=== PATIENT | female | born 1960 | race Caucasian/White ===

== ENCOUNTER → 2025-01-08 09:16 | Outpatient (REF) | payer OTHER, SELFPAY ==
--- OUTSIDE RECORDS SUMMARY | 2024-08-15 09:00 | XMS_ITS ---
Author Organization [facility] Address [address] [place] [address] [address] [place] [address] Care Team Providers Care [employer] President Name Role Phone BRANDON APODACA Unavailable [phone] REASON FOR VISIT Annual KILN FIREMAN Physical Encounters Encounter Location Date Provider Diagnosis [facility] [address] [place] [id number] 08/15/2024 BRANDON APODACA Plan Of Treatment Next Appt Details Provider Name:BRANDON Portillo, 09/08/2025 11:00:00 AM, [address] [place] [address], [address], [place], [address], Progress Notes * QIANA MONIQUEBERTRANDOB:1960 (64 yo F)Acc No.[id number]:08/15/2024 PROGRESS NOTES Patient: KAYLAH ESPOSITO Provider: Nette APODACA MD :1960 A ge:64 Y S ex:Female Date:08/15/2024 Address:[address] [place], [place] [id number] Subjective: * Chief Complaints: * 1 . Annual KILN FIREMAN Physical. * Medical History: Objective: * Vitals: Assessment: Plan: * Treatment: * Images: Billing Information: * Visit Code: * Procedure Codes: * Electronic signature of BRANDON APODACA MD on 01/08/2025 at 10:28 AM EDT Sign off status: Pending * Provider: Nette APODACA MD Date: 0 08/15/2024 Generated for Emily caraballo/Mario/eTransmitting on: 1 10:28 AM EDT
--- NOTE | ~2025-01-08 | NM_ITS ---
EXAMINATION: NM THYROID IMAGING AND UPTAKE CLINICAL INFORMATION: HYPERTHYROIDISM COMPARISON: There are no prior studies available for comparison. TECHNIQUE: Following the oral administration of 300 microcuries of I-123 sodium iodide, thyroid uptake was performed and expressed as a percentage of the administrated dose. Gamma scintillation camera images of the thyroid in the anterior and right and left anterior oblique views were obtained using a pinhole collimator following the administration of 10 mCi Tc-99m pertechnetate. FINDINGS: There is a normal homogeneous distribution of activity throughout both thyroid lobes. No focal hot foci or cold defects are identified. The uptake is 9.12% at 4 hours and 34.53% at 24 hours. NM/NM thyroid w uptake IMPRESSION: Normal thyroid uptake and scan. Electronically signed by: Marty Carroll MD 01/09/2025 12:06 PM EDT
--- OUTSIDE RECORDS SUMMARY | 2025-01-08 10:28 | XMS_ITS | Clinical Summary ---
Author Organization [facility] Address [address] [place] [address] Phone Care Team Providers Care Personal Shopper Name Role Phone Lanie Mckeon MD Primary Care Provider [phone] Allergies Active Allergy Reactions Criticality Noted Date Comments Hydrocodone Rash 07/09/2024 Pollen Extracts 05/06/2024 Medications cetirizine (ZyrTEC) 10 mg tablet Take 1 tablet (10 mg total) by mouth 1 (one) time each day. 03/26/19 25 Active oxyBUTYnin XL (DITROPAN-XL) 10 mg 24 hr tabletIndication s:bladder hyperactivity Take 1 tablet (10 mg total) by mouth 1 (one) time each day. Do not crush, chew, or split. Active nicotine (NICODERM CQ) 14 mg/[address] 1 patch on the skin 1 (one) time each day at the same time. Active lisinopriL (PRINIVIL,ZESTRI L) 10 mg tablet TAKE 1 TABLET BY MOUTH 1 TIME EACH DAY. 30 tablet 05/20/19 25 Active atorvastatin (LIPITOR) 40 mg tablet TAKE 1 TABLET BY MOUTH EVERYDAY AT BEDTIME 30 tablet 11 05/23/19 25 Active aspirin 81 mg EC tablet TAKE 1 TABLET BY MOUTH 1 TIME EACH DAY. 30 tablet 5 12/11/19 25 Active apixaban (ELIQUIS) 5 mg tablet Take 1 tablet (5 mg total) by mouth 2 (two) times a day. 180 each 12/25/19 25 025 Active aspirin 81 mg EC tablet Take 1 tablet (81 mg total) by mouth 1 (one) time each day. 30 each 5 06/27/19 25 025 Discontinued apixaban (ELIQUIS) 5 mg tablet Take 1 tablet (5 mg total) by mouth 2 (two) times a day. 180 each 1 07/10/19 25 025 Discontinued(Re order) Active Problems Problem Noted Date Diagnosed Date Primary hypertension 12/24/2024 Tobacco use 12/24/2024 Typical atrial flutter (CMS/HCC V24, CMS/HCC V28 ) 04/18/2024 Assessment & Plan (09/16/2024 8:50 PM EDT): Orders: ECG 12 lead Assessment & Plan (07/09/2024 1:47 PM EDT): The patient has a history of atrial flutter/fibrillation which was recently identified during her recent hospitalization. She was recommended to go electrical cardioversion which was completed 05/23/2024. Unfortunately, despite 3 cardioversion shock attempts, the patient was unable to maintain a sinus rhythm. EKG today shows atrial flutter at a rate of 58 bpm. Echocardiogram showed normal LV function March 2024. At this point, recommend she be evaluated by electrophysiology Dr. Mcgraw for consideration of ablation. The patient agrees to proceed. She will continue on anticoagulation therapy with apixaban 5 mg orally twice daily based on her age, weight, kidney function. She denies any excessive bruising or bleeding. She is not currently on any rate control therapies and denies any elevated heart rates. She will notify me of any changes. She denies any evidence of snoring. Orders: ECG 12 lead Assessment & Plan (05/06/2024 9:36 AM EST): The patient was found to have atrial flutter/fibrillation her recent hospitalization at [facility]. Her heart rate remained controlled during the hospitalization. She was started on anticoagulation therapy with Eliquis on 04/22/2024. She has been compliant with the Eliquis. On today's visit, she was noted to still be in atrial flutter. Her heart rate is well-controlled. We discussed the possibility of a cardioversion in order to attempt to restore a sinus rhythm. The patient is agreeable to undergoing a cardioversion. Will plan for a cardioversion to be done on 05/23/2024 (after that patient has been on anticoagulation therapy for at least 1 month). Orders: Cardioversion external; Future Coronary artery disease invo lving gulkana coronary artery of gulkana heart without angina pectoris 04/18/2024 Assessment & Plan (09/16/2024 8:50 PM EDT): Orders: ECG 12 lead Assessment & Plan (07/09/2024 1:47 PM EDT): The patient has a history of coronary artery disease. Recent left heart catheterization showed mild to moderate nonobstructive CAD in the ramus with normal left main, LAD, circumflex, and RCA. Currently, the patient denies any chest pain at rest or with exertion. The patient continues on secondary preventive therapy for CAD, including: aspirin and statin. Will continue current therapy. Assessment & Plan (05/06/2024 9:36 AM EST): The patient has a history of coronary artery disease. Recent left heart catheterization showed mild to moderate nonobstructive CAD in the ramus with normal left main, LAD, circumflex, and RCA. Currently, the patient denies any chest pain at rest or with exertion. The patient continues on secondary preventive therapy for CAD, including: aspirin, statin . Will continue current therapy. Yahir 05/30/2006 Resolved Problems Problem Noted Date Diagnosed Date Resolved Date Right arm pain 05/06/2024 07/09/2024 Assessment & Plan (05/06/2024 9:36 AM EST): The patient underwent a right heart catheterization via the right radial approach. On today's visit, the patient states that she sometimes notices a mild discomfort sensation in the lateral side of the right wrist (over the right radial artery. The right radial pulse was noted to be normal. There is no evidence of any abnormal masses or hematoma. However, there is tenderness to palpation when pressing on the right radial artery. As such, we will order an arterial duplex to rule out the presence of any postprocedure complications such as a right radial artery pseudoaneurysm or AV fistula. Orders: Vascular US duplex upper extremity arteries right with Doppler; Future SOB (shortness of breath) 09/24/2008 Overview (04/24/2024): 2008, with neg. EW visit of CBC and BMP and bilateral leg U/S's Encounters Date Type Department Care Team Description 12/24/2024 10:10 AM EDT Office Visit [facility] - [address] [place] [address] Rosa Maria Carrillo PA Typical atrial flutter (CMS/HCC V24, CMS/HCC V28) (Primary Dx); Coronary artery disease involving gulkana coronary artery of gulkana heart without angina pectoris; Primary hypertension; Tobacco use 11/11/2024 8:50 AM EDT Lab Draw Station - [address] [address] Typical atrial flutter (CMS/HCC V24, CMS/HCC V28) (Primary Dx); Pure hypercholesterolemia; Acute myocardial infarction, subendocardial infarction, initial episode of care (CMS/HCC V24, CMS/HCC V28); Atrial flutter (CMS/HCC V24, CMS/HCC V28); Body mass index 31.0-31.9, adult from Last 3 Months Immunizations Immunization Administration Dates Next Due Td Tetanus diptheria (Tdvax) 7yo and older 06/06 Surgical History Surgery Date Site/Laterality Comments TUBAL LIGATION PROCEDURE: HISTORICAL TUBAL LIGATION ABLATION DONE ON 11/20/2024 AT [facility] [place] Medical History Medical History Date Comments Depressive disorder, not els ewhere classified DX:Depressive disorder, not elsewhere classified Tobacco use disorder DX:Tobacco use disorder Unspecified asthma(493.90) DX:Un specified asthma(493.90) Historical Medical DX 09/24/2008 DX:S.O.B. Primary hypertension 12/24/2024 Family History Medical History Relation Name Comments Diabetes Father Heart attack Father Hypertension Father Hypertension Mother Relation Name Status Comments Father Mother Social History Tobacco Use Types Packs/Day Years Used Date Smoking Tobacco: Every Day Cigarettes 0.5 0.7 Started: 04/2024 Tobacco Cessation:Ready to Q uit: Not Asked; Counseling Given: Not Answered Comments:Approx 5-10 cigarettes daily Alcohol Use Standard Drinks/Week Comments Yes 0 (1 standard drink = 0.6 oz pur e alcohol) once weekly Housing Instability Answer Date Recorde d Are you worried that in the next 2 months you may not have stable housing? No 04/18/2024 Food Access & Nutrition Answer Date Rec orded Do you have access to a vari ety of food including fruits and vegetables? Yes 04/18/2024 Access to Healthcare Answer Date Record ed Within the last 3 months, ho w many times did you visit the emergency department for your medical care? 0 04/18/2024 Health Literacy Answer Date Recorded How often do you need to hav e someone help you when you read instructions, pamphlets, or other written material from your doctor or pharmacy? Rarely 04/18/2024 Caregiver: How often do you need to have someone help you when you read instructions, pamphlets, or other written material from your doctor or pharmacy? Not on file 04/18/2024 Financial Risk Answer Date Recorded How hard is it for you to pa y for the very basics like food, housing, medical care, and air conditioning / heating? Not very hard 04/18/2024 Transportation Answer Date Recorded Has the lack of transportati on kept you from meetings, work, or from getting things needed for daily living? No Has the lack of transportati on kept you from medical appointments or from getting medications? No 04/18/2024 Social Isolation Answer Date Recorded How often do you feel lonely or isolated from th ose around you? Rarely 04/18/2024 Food Risk Answer Date Recorded Within the past 12 months we worried whether our food would run out before we got money to buy more. Never true 04/18/2024 Within the past 12 months th e food we bought just didn't last and we didn't have money to get more. Never true 04/18/2024 Dependent Care Answer Date Recorded Do you need help finding or paying for care for your loved ones. For example, child care provider or elderly care for an older adult? No 04/18/2024 Education Answer Date Recorded Do you think completing more education or training, like finishing a GED, going to college, or learning a trade, would be helpful for you? N/A 04/18/2024 Employment and Income Answer Date Recor ded During the last four weeks, have you been actively looking for work? No 04/18/2024 Living Situation Answer Date Recorded What is your living situation? Unrecognized valu e 04/18/2024 Interpersonal Safety Answer Date Record ed Physical Abuse Unrecognized value 04/18/2024 Verbal Abuse Unrecognized value 04/18/2024 Comments No Sex and Gender Information Value Date Recorded Sex Assigned at Female 04/18/2024 3:56 PM EST Legal Sex Female 1:32 AM EST Gender Identity Female 04/18/2024 3:56 PM EST Sexual Orientation Straight 04/18/2024 3: 56 PM EST Obstetrics History Last Filed Vital Signs Vital Sign Reading Time Taken Comments Blood Pressure 120/60 12/24/2024 9:45 AM EDT Pulse 65 12/24/2024 9:45 AM EDT Temperature 36.8 C (98.2 F) 05/23/2024 12:34 PM EST Respiratory Rate 20 05/23/2024 12:34 PM EST Oxygen Saturation 97% 12/24/2024 9:45 AM EDT Inhaled Oxygen Concentration - - Weight 79.4 kg (175 lb) 12/24/2024 9:45 AM EDT Height 165.1 cm (5' 5 ) 12/24/2024 9:45 AM EDT Body Mass Index 29.12 12/24/2024 9:45 AM EDT Plan of Treatment Upcoming Encounters Date Type Department Care Team (Late st Contact Info) Description 03/04/2025 10:10 AM EST Office Visit [facility] - [address] [place] [address] Rosa Maria Carrillo PA [address] [place] [address] Health Maintenance Due Date Last Done Comments Breast Cancer Screening 1960 RSV Immunization Adult Patients (1 - Risk 50-74 years 1-dose series) 02/09/2010 Zoster Vaccines (1 of 2) 02/09/2010 DTaP,Tdap,and Td Vaccines (3 - Td or Tdap) 10/07/2018 10/07/2008, 06/06/2004 HIV Screening 02/26/2022 Hepatitis C Screening 02/26/2022 Depression Screening 03/26/2024 COVID-19 Vaccine ( season) 2024 Influenza Vaccine (#1) 2024 Social Influencers of Health Screening 04/18/2025 04/18/2024 Hypertension/CHF/CAD Annual BMP Blood Test 11/11/2025 11/11/2024, 04/22/2024, 04/21/2024, Additional history exists Colorectal Cancer Screening: FIT-DNA (Cologuard) 06/26/2026 06/27/2023, 06/27/2023 Cervical Cancer Screening: HPV 09/02/2029 09/02/2024 Cholesterol Screening (Lipid Panel) 11/11/2029 11/11/2024, 09/19/2006 Pneumococcal Vaccine: 50+ Years Completed 10/20/2021, 12/31/2014 HIB Vaccines Aged Out No longer eligi ble based on patient's age to complete this topic HPV Vaccines Aged Out No longer eligi ble based on patient's age to complete this topic Hepatitis A Vaccines Aged Out No long er eligible based on patient's age to complete this topic Hepatitis B Vaccines Aged Out No long er eligible based on patient's age to complete this topic IPV Vaccines Aged Out No longer eligi ble based on patient's age to complete this topic MMR Vaccines Aged Out No longer eligi ble based on patient's age to complete this topic Meningococcal ACWY Vaccine Aged Out N o longer eligible based on patient's age to complete this topic Meningococcal B Vaccine Aged Out No l onger eligible based on patient's age to complete this topic RSV Immunization Patients Under 20 months Aged Out No longer eligible based on patient's age to complete this topic Varicella Vaccines Aged Out No longer eligible based on patient's age to complete this topic Procedures Procedure Name Priority Date/Time Associated Diagnosis Comments ECG 12-LEAD Routine 12/24/2024 10:22 AM EDT Typical atrial flutter (CMS/HCC V24, CMS/HCC V28) CBC WITH AUTO DIFFERENTIAL Routine 11/11/2024 8:52 AM EDT Typical atrial flutter (CMS/HCC V24, CMS/HCC V28) Pure hypercholesterolemia Acute myocardial infarction, subendocardial infarction, initial episode of care (CMS/HCC V24, CMS/HCC V28) Atrial flutter (CMS/HCC V24, CMS/HCC V28) Body mass index 31.0-31.9, adult PROTHROMBIN TIME WITH INR Routine 11/11/2024 8:52 AM EDT Typical atrial flutter (CMS/HCC V24, CMS/HCC V28) THYROID STIMULATING HORMONE Routine 11/11/2024 8:52 AM EDT Typical atrial flutter (CMS/HCC V24, CMS/HCC V28) Pure hypercholesterolemia Acute myocardial infarction, subendocardial infarction, initial episode of care (CMS/HCC V24, CMS/HCC V28) Atrial flutter (CMS/HCC V24, CMS/HCC V28) Body mass index 31.0-31.9, adult LIPID PANEL WITH REFLEX TO DIRECT LDL Routine 11/11/2024 8:52 AM EDT Typical atrial flutter (CMS/HCC V24, CMS/HCC V28) Pure hypercholesterolemia Acute myocardial infarction, subendocardial infarction, initial episode of care (CMS/HCC V24, CMS/HCC V28) Atrial flutter (CMS/HCC V24, CMS/HCC V28) Body mass index 31.0-31.9, adult COMPREHENSIVE METABOLIC PANEL Routine 11/11/2024 8:52 AM EDT Typical atrial flutter (CMS/HCC V24, CMS/HCC V28) Pure hypercholesterolemia Acute myocardial infarction, subendocardial infarction, initial episode of care (CMS/HCC V24, CMS/HCC V28) Atrial flutter (CMS/HCC V24, CMS/HCC V28) Body mass index 31.0-31.9, adult CBC AND DIFFERENTIAL Routine 11/11/2024 8:52 AM EDT Typical atrial flutter (CMS/HCC V24, CMS/HCC V28) Pure hypercholesterolemia Acute myocardial infarction, subendocardial infarction, initial episode of care (CMS/HCC V24, CMS/HCC V28) Atrial flutter (CMS/HCC V24, CMS/HCC V28) Body mass index 31.0-31.9, adult HPV WITH REFLEX GENOTYPE Routine 09/02/2024 12:00 AM EDT Encounter for gynecological examination (general) (routine) without abnormal findings from Last 3 Months or Most Recently Relevant to Health Maintenance Results * ECG 12 lead (12/24/2024 10:22 AM EDT) us Rosa Maria STEEN ECG ORDERABLES Final Result GEMUSE * Lipid panel with reflex to direct LDL (11/11/2024 8:52 AM EDT) Cholesterol 122 0 - 200 mg/dL LAB CHEMISTRY METHOD 11/11/2024 12:53 PM EDT [facility] Triglycerides 71 0 - 150 mg/dL LAB CHEMISTRY METHOD 11/11/2024 12:53 PM EDT [facility] HDL 56 >=40 mg/dL LAB CHEMISTRY METHOD 11/11/2024 12:53 PM EDT [facility] LDL Calculated 52 0 - 100 mg/dL LAB CHEMISTRY METHOD 11/11/2024 12:53 PM EDT [facility] Comment:Estimated LDL Calcul ated using equation: Total cholesterol - HDL cholesterol - (Triglycerides/5) VLDL Cholesterol Carlyle 14.2 mg/dL LAB CHEMISTRY METHOD 11/11/2024 12:53 PM EDT [facility] Non HDL Chol. (LDL+VLDL) 66 <145 mg/dL LAB CHEMISTRY METHOD 11/11/2024 12:53 PM EDT [facility] Chol/HDL Ratio 2.2 0.0 - 4.4 LAB CHEMISTRY METHOD 11/11/2024 12:53 PM [facility] Blood Venous blood specimen / Unknown Venipuncture / Unknown 11/11/2024 8:52 AM EDT 11/11/2024 8:52 AM EDT us Lanie Mckeon MD LAB BLOOD ORDERABLES Final Re sult [facility] [address] [place] [address], [place] [phone] * (ABNORMAL) CBC auto differential (11/11/2024 8:52 AM EDT) WBC 6.4 4.8 - 10.8 K/mcL LAB HEMETOLOGY METHOD 11/11/2024 11:51 AM EDT [facility] RBC 4.30 3.80 - 4.80 M/mcL LAB HEMETOLOGY METHOD 11/11/2024 11:51 AM EDT [facility] Hemoglobin 12.5 11.5 - 16.0 g/dL LAB HEMETOLOGY METHOD 11/11/2024 11:51 AM EDT [facility] Hematocrit 38.5 35.0 - 47.0 % LAB HEMETOLOGY METHOD 11/11/2024 11:51 AM EDT [facility] MCV 89.7 79.0 - 98.0 FL LAB HEMETOLOGY METHOD 11/11/2024 11:51 AM EDT [facility] MCH 29.1 27.0 - 32.0 pcg LAB HEMETOLOGY METHOD 11/11/2024 11:51 AM EDT [facility] MCHC 32.5 32.0 - 37.0 g/dL LAB HEMETOLOGY METHOD 11/11/2024 11:51 AM EDT [facility] RDW 14.3 11.0 - 15.0 % LAB HEMETOLOGY METHOD 11/11/2024 11:51 AM EDT [facility] Platelets 201 130 - 400 K/mcL LAB HEMETOLOGY METHOD 11/11/2024 11:51 AM EDT [facility] MPV 13.3(H) 7.0 - 11.0 FL LAB HEMETOLOGY METHOD 11/11/2024 11:51 AM [facility] NRBC 0.0 <1.0 % LAB HEMETOLOGY METHOD 11/11/2024 11:51 AM [facility] NRBC Absolute 0.00 <0.10 K/mcL LAB HEMETOLOGY METHOD 11/11/2024 11:51 AM [facility] Neutrophils Relative 65.3 % LAB HEMETOLOGY METHOD 11/11/2024 11:51 AM [facility] Lymphocytes Relative 20.7 % LAB HEMETOLOGY METHOD 11/11/2024 11:51 AM [facility] Monocytes Relative 9.7 % LAB HEMETOLOGY METHOD 11/11/2024 11:51 AM [facility] Eosinophils Relative 3.3 % LAB HEMETOLOGY METHOD 11/11/2024 11:51 AM [facility] Basophils Relative 0.8 % LAB HEMETOLOGY METHOD 11/11/2024 11:51 AM [facility] Immature Granulocytes Relative 0.2 % LAB HEMETOLOGY METHOD 11/11/2024 11:51 AM [facility] Neutrophils Absolute 4.17 1.50 - 7.00 K/mcL LAB HEMETOLOGY METHOD 11/11/2024 11:51 AM [facility] Lymphocytes Absolute 1.32 1.00 - 5.00 K/mcL LAB HEMETOLOGY METHOD 11/11/2024 11:51 AM [facility] Monocytes Absolute 0.62 0.20 - 1.00 K/mcL LAB HEMETOLOGY METHOD 11/11/2024 11:51 AM [facility] Eosinophils Absolute 0.21 0.00 - 0.50 K/mcL LAB HEMETOLOGY METHOD 11/11/2024 11:51 AM [facility] Basophils Absolute 0.05 0.00 - 0.20 K/[facility] LAB HEMETOLOGY METHOD 11/11/2024 11:51 AM EDT [facility] Immature Granulocytes Absolute 0.01 0.00 - 0.03 K/[facility] LAB HEMETOLOGY METHOD 11/11/2024 11:51 AM EDT [facility] Blood Venous blood specimen / Unknown Venipuncture / Unknown 11/11/2024 8:52 AM EDT 11/11/2024 8:52 AM EDT Lanie Mckeon MD LAB BLOOD ORDERABLES Final Re sult Performing Organization Address [facility]/ZIP Co de Phone Number [facility] [address] [place] [address], [place] [phone] * (ABNORMAL) Prothrombin time with INR (11/11/2024 8:52 AM EDT) Pathologist [facility] Protime 15.2(H) 10.6 - 13.9 sec LAB COAGULATION METHOD 11/11/2024 12:06 PM EDT [facility] INR 1.2 LAB COAGULATION METHOD 11/11/2024 12:06 PM EDT [facility] Blood Venous blood specimen / Unknown Venipuncture / Unknown 11/11/2024 8:52 AM EDT 11/11/2024 8:52 AM EDT Phil Mcgraw MD LAB BLOOD ORDERABLES Final Result [facility] [address] [place] [address], [place] [phone] * (ABNORMAL) Thyroid stimulating hormone (11/11/2024 8:52 AM EDT) TSH <0.05(L) 0.40 - 4.00 mcIU/mL LAB CHEMISTRY METHOD 11/11/2024 1:33 PM EDT [facility] Blood Venous blood specimen / Unknown Venipuncture / Unknown 11/11/2024 8:52 AM EDT 11/11/2024 8:52 AM EDT us Lanie Mckeon MD LAB BLOOD ORDERABLES Final Re sult [facility] [address] [place] [address], [place] [phone] * (ABNORMAL) Comprehensive metabolic panel (11/11/2024 8:52 AM EDT) Sodium 136 133 - 145 mmol/L LAB CHEMISTRY METHOD 11/11/2024 12:53 PM [facility] Potassium 4.6 3.5 - 5.5 mmol/L LAB CHEMISTRY METHOD 11/11/2024 12:53 PM [facility] Chloride 106 96 - 110 mmol/L LAB CHEMISTRY METHOD 11/11/2024 12:53 PM [facility] CO2 25 21 - 32 mmol/L LAB CHEMISTRY METHOD 11/11/2024 12:53 PM [facility] Anion Gap 5 3 - 11 LAB CHEMISTRY METHOD 11/11/2024 12:53 PM [facility] Glucose 99 70 - 100 mg/dL LAB CHEMISTRY METHOD 11/11/2024 12:53 PM [facility] BUN 14 5 - 25 mg/dL LAB CHEMISTRY METHOD 11/11/2024 12:53 PM [facility] Creatinine 0.88 0.50 - 1.10 mg/dL LAB CHEMISTRY METHOD 11/11/2024 12:53 PM [facility] eGFR 73 >=60 mL/min/1. 73m2 LAB CHEMISTRY METHOD 11/11/2024 12:53 PM [facility] Comment:Calculation based on the Chronic Kidney Disease Epidemiology Collaboration (CKD-EPI) equation refit without adjustment for race. BUN/Creatinine Ratio 15.9 LAB CHEMISTRY METHOD 11/11/2024 12:53 PM [facility] Calcium 9.3 8.5 - 10.5 mg/dL LAB CHEMISTRY METHOD 11/11/2024 12:53 PM [facility] AST (SGOT) 38 10 - 42 unit/L LAB CHEMISTRY METHOD 11/11/2024 12:53 PM [facility] ALT (SGPT) 27 10 - 60 unit/L LAB CHEMISTRY METHOD 11/11/2024 12:53 PM [facility] Alkaline Phosphatase 306(H) 42 - 121 unit/L LAB CHEMISTRY METHOD 11/11/2024 12:53 PM [facility] Total Protein 7.3 6.0 - 8.0 g/dL LAB CHEMISTRY METHOD 11/11/2024 12:53 PM [facility] Albumin 3.2 3.2 - 5.0 g/dL LAB CHEMISTRY METHOD 11/11/2024 12:53 PM [facility] Total Bilirubin 0.6 0.0 - 1.4 mg/dL LAB CHEMISTRY METHOD 11/11/2024 12:53 PM [facility] Blood Venous blood specimen / Unknown Venipuncture / Unknown 11/11/2024 8:52 AM EDT 11/11/2024 8:52 AM EDT us Lanie Mckeon MD LAB BLOOD ORDERABLES Final Re sult [facility] [address] [place] [address], * HPV with reflex genotype (09/02/2024 12:00 AM EDT) HPV Negative Negative LAB MICROBIOLOGY METHOD 09/03/2024 4:43 PM EDT [facility] Brushing/Spatula Cervix uteri structure / Unknown 09/02/2024 09/03/2024 7:41 AM EDT us Rosa Maria Erickson MD LAB MOLECULAR DIAGNOSTICS ORDER LEI Final Result [facility] [address] [place] [address], from Last 3 Months or Most Recently Relevant to Health Maintenance Insurance [employer] Advance Directives * Full Code - Default (Latest Code Status on File) Date Activated Date Inactivated Comments 04/18/2024 6:50 PM 04/22/2024 5:43 PM This is orde r is used when code status has not been discussed with the patient, or code status is otherwise unknown/unconfirmed To update the patient's code status, place a code status order. Do not modify or discontinue any currently active code status orders. Care Teams Personal Shopper Relationship Specialty Start Date End Date Lanie Mckeon MD [address] [place] [address] [place] [address] PCP - General Internal Medicine 04/18/24
--- OUTSIDE RECORDS SUMMARY | 2025-01-08 10:28 | XMS_ITS | Clinical Summary ---
Author Organization [facility] Address [address] [place] [address] Care Team Providers Care Refueler Name Role Phone Unavailable Primary Care Provider Unavailabl e Allergies Active Allergy Reactions Criticality Noted Date Comments Hydrocodone GI Intolerance/Nausea/Vomiting Low 10/2014 Medications Cannabis (MARIJUANA) Misc Medical Prescription Strength Inhale. Active ibuprofen (ADVIL,MOTRIN) 600 MG tablet Take 600 mg by mouth 4 times daily (every 6 hours) as needed. Active Active Problems Problem Noted Date Diagnosed Date Smoking 12/31/2014 Chronic back pain 12/31/2014 Immunizations Immunization Administration Dates Next Due Influenza Inactivated/Split Preservative Free IM 12/31/2014 Pneumococcal Polysaccharide 23-Valent 12/31/2014 Td 10/07/2008 Family History Medical History Relation Name Comments Diabetes Father Hypertension Mother Relation Name Status Comments Father Mother Social History Tobacco Use Types Packs/Day Years Used Date Smoking Tobacco: Every Day Cigarettes Tobacco Cessation:Ready to Q uit: No Alcohol Use Standard Drinks/Week Comments Yes 0 (1 standard drink = 0.6 oz pur e alcohol) 2 drinks/month Comments No Sex and Gender Information Value Date Recorded Sex Assigned at Not on file Legal Sex Female 1:31 PM EDT Gender Identity Not on file Sexual Orientation Not on file Occupation Industry Job Start Date Job End Date retired Not on file Not on file Not on file Last Filed Vital Signs Vital Sign Reading Time Taken Comments Blood Pressure 124/85 02/05/2015 12:32 PM EST Pulse 96 02/05/2015 11:27 AM EST Temperature 36.9 C (98.4 F) 02/05/2015 11:27 AM EST Respiratory Rate - - Oxygen Saturation - - Inhaled Oxygen Concentration - - Weight 94.1 kg (207 lb 6.4 oz) 02/05/2015 11:27 AM EST Height 158.8 cm (5' 2.5 ) 02/05/2015 11:27 AM ES T Body Mass Index 37.33 02/05/2015 11:27 AM EST Plan of Treatment Health Maintenance Due Date Last Done Comments Hepatitis C Virus Screening 1960 HIV Screening 02/09/1973 Pap Smear (Ages 21-65) 02/09/1981 Mammogram 2000 Colonoscopy 02/09/2005 DTaP/Tdap/Td Vaccines (1 - Tdap) 10/08/2008 10/08/19 09 Zoster (Shingles) Vaccine (1 of 2) 02/09/2010 Pneumococcal Vaccines 50+ (2 of 2 - PCV) 01/01/2016 12/31/2014 Influenza Vaccine 10/24/2024 12/31/2014 COVID-19 Vaccine (1 - 2023-2 5 season) 2024 RSV Vaccine 50 years and old er and Patients (1 - 1-dose 75+ series) 02/09/2035 Hepatitis B Vaccines Aged Out No long er eligible based on patient's age to complete this topic Insurance [facility]
--- OUTSIDE RECORDS SUMMARY | 2025-01-08 10:28 | XMS_ITS | Encounter Summary ---
Author Organization [facility] Address [address] [place] [address] Care Team Providers Care Spout Positioner Name Role Phone Ran Cuellar MD Primary Care Provider [phone] Encounter Details Date Type Department Care Team (Late st Contact Info) Description 10/07/2008 Scanned Document [address] [phone] Provider, Generic Social History Tobacco Use Types Packs/Day Years Used Date Smoking Tobacco: Never Assessed Comments Unknown Sex and Gender Information Value Date Recorded Sex Assigned at Not on file Legal Sex Female 1:31 PM EDT Gender Identity Not on file Sexual Orientation Not on file documented as of this encounter Plan of Treatment Not on file documented as of this encounter Visit Diagnoses Not on filedocumented in this encounter Care Teams Spout Positioner Relationship Specialty Start Date End Date Ran Cuellar MD [address] [place] [address] PCP - General Internal Medicine 11/18/14 07/30/18 documented as of this encounter
--- OUTSIDE RECORDS SUMMARY | 2025-01-08 10:28 | XMS_ITS | Encounter Summary ---
Author Organization [facility] Address [address] [place] [address] Care Team Providers Care Shaper And Presser Name Role Phone Lanie Mckeon MD Primary Care Provider [phone] Encounter Details Date Type Department Care Team (Latest Contact Info) Description 09/03/[address] [facility] - Main Lab [address] [facility] [place] [address] Rosa Maria Erickson MD [address] [place] [phone] Encounter for gynecological examination (general) (routine) without abnormal findings Social History Tobacco Use Types Packs/Day Years Used Date Smoking Tobacco: Former Cigarettes 0.5 0.7 S tarted: 04/2024 Alcohol Use Standard Drinks/Week Comments Not Currently 0 (1 standard drink = 0.6 oz pur e alcohol) Housing Instability Answer Date Recorde d Are you worried that in the next 2 months you may not have stable housing? No 04/18/2024 Food Access & Nutrition Answer Date Rec orded Do you have access to a vari ety of food including fruits and vegetables? Yes 04/18/2024 Access to Healthcare Answer Date Record ed Within the last 3 months, miriam montoya many times did you visit the emergency [...] do you feel lonely or isolated from ose around you? Rarely 04/18/2024 Food Risk [...] care for your loved ones. For example, childbirth and infant care teacher or elderly care for an older adult? [...] Orientation Straight 04/18/2024 3: 56 PM EST documented as of this encounter Plan of Treatment Upcoming Encounters Date Type Department Care Team (Late st Contact Info) Description 03/04/2025 10:10 AM EST Office Visit [facility] [address] [place] [phone] Rosa Maria Carrillo PA [address] [place] [address] documented as of this encounter Procedures Procedure Name Priority Date/Time Associated Diagnosis Comments HPV WITH REFLEX GENOTYPE Routine 09/02/2024 12:00 AM EDT Encounter for gynecological examination (general) (routine) without abnormal findings PAP SMEAR Routine 09/02/2024 12:00 AM EDT Encounter for gynecological examination (general) (routine) without abnormal findings documented in this encounter Results * HPV with reflex genotype (09/02/2024 12:00 AM EDT) HPV Negative Negative LAB MICROBIOLOGY METHOD 09/03/2024 4:43 PM EDT [facility] Brushing/Spatula Cervix uteri structure / Unknown 09/02/2024 09/03/2024 7:41 AM EDT Rosa Maria Erickson MD LAB MOLECULAR DIAGNOSTICS ORDER LEI Final Result [facility] [address] [place] [address], * Pap smear (09/02/2024 12:00 AM EDT) Interpretation Negative for intraepithelial lesion or malignancy 09/08/2024 1:33 PM EDT [facility] General Categorization Negative 09/08/2024 1:33 PM EDT [facility] Other Findings Reactive cellular changes associated with inflammation 09/08/2024 1:33 PM EDT [facility] Specimen Adequacy Satisfactory for evaluation, endocervical/chung sformation zone component present 09/08/2024 1:33 PM EDT [facility] Pap Methodology Liquid Based Pap Test 09/08/2024 1:33 PM EDT [facility] Disclaimer The Pap test is a screening test which carries an inherent false negative rate. These test results should be correlated with the patient's clinical findings and history. This Pap test was processed using an automated screening system. Technical cytopathology services provided by [facility], at [address] [place] [id number] (CLIA # [id number]/Jessica Child MD, Tobacco Drier Operator.) 09/08/2024 1:33 PM EDT [facility] Console Pap Interpretation Reported 09/08/2024 1:33 PM EDT [facility] Brushing/Spatula Cervix uteri structure / Unknown 09/02/2024 09/03/2024 7:41 AM EDT us Rosa Maria Erickson MD LAB CYTOLOGY ORDERABLES Final R esult [facility] [address] [place] [address], documented in this encounter Visit Diagnoses Diagnosis Encounter for gynecological examination (general) (routine) without abnormal findings documented in this encounter Care Teams Shaper And Presser Relationship Specialty Start Date End Date Lanie Mckeon MD [address] [place] [address] [place] [address] PCP - General Internal Medicine 04/18/24 documented as of this encounter
--- OUTSIDE RECORDS SUMMARY | 2025-01-08 10:28 | XMS_ITS | Encounter Summary ---
Author Organization [facility] Address [address] [place] [address] Care Team Providers Care Premium Auditor Name Role Phone Ran Cuellar MD Primary Care Provider [phone] Encounter Details Date Type Department Care Team (Late st Contact Info) Description 03/29/2015 Scanned Document [address] [phone] Provider, Generic Social History Tobacco Use Types Packs/Day Years Used Date Smoking Tobacco: Every Day Cigarettes Alcohol Use Standard Drinks/Week Comments Yes 0 [...] file Not on file Not on file documented as of this encounter Plan of Treatment Not on file documented as of this encounter Procedures Procedure Name Priority Date/Time Associated Diagnosis Comments CARDIOLOGY ECHO 03/29/2015 documented in this encounter Results * CARDIOLOGY ECHO (03/29/2015) Anatomical Region Laterality Modality Other Narrative 03/30/2015 7:17 AM EST Ordered by an unspecified provider. us Generic Provider HX AMB PROCEDURES Edited Result - Final documented in this encounter Visit Diagnoses Not on filedocumented in this encounter Care Teams Premium Auditor Relationship Specialty Start Date End Date Ran Cuellar MD [address] [place] [address] PCP - General Internal Medicine 11/18/14 07/30/18 documented as of this encounter
--- OUTSIDE RECORDS SUMMARY | 2025-01-08 10:28 | XMS_ITS | Patient Health Record ---
Author Organization [facility] Address [address] [place] [phone] Care Team Providers Care Strategy Director Name Role Phone BRANDON APODACA [phone] Allergies Allergen (clinical drug ingredient) Drug/Non Drug Allergy documented on EMR Reaction Allergy Type Onset Date Status hydrocodone Hydrocodone rash Drug Allergy Act sreekanth Reason For Referral No Information Medications Medication SIG (Take, Route, Frequency, Duration) Notes Start Date End Date Status Fluticasone Propionate HFA 110 MCG/ACT Inhalation; Duration: 30 Days Active oxyBUTYnin Chloride ER 10 MG 1 tablet Orally Once a day; Duration: 90 days Active Albuterol Sulfate HFA 108 (90 Base) MCG/ACT INHALE 2 PUFF 4 TIMES A DAY Inhalation; Duration: 75 Days Active Cetirizine HCl 10 MG Oral; Duration: 30 Days Active Aspirin Low Dose 81 MG Oral; Duration: 30 Days Active Atorvastatin Calcium 40 MG Oral; Duration: 30 Days Active Lisinopril 10 MG Oral; Duration: 30 Days Active Ventolin HFA 108 (90 Base) MCG/ACT Inhalation; Duration: 75 Days Active Eliquis 5 MG Oral; Duration: 30 Days bid Active Social History Tobacco Use: Social History Observation Description Date Details (start date - stop date) Current some da y smoker NA - NA Alcohol Screen (Audit-C) Question Answer Notes Did you have a drink contain ing alcohol in the past year? Yes How often did you have a dri nk containing alcohol in the past year? 2 to 4 times a month (2 points) How many drinks did you have on a typical day when you were drinking in the past year? 1 or 2 drinks (0 point) How often did you have 6 or more drinks on one occasion in the past year? Never (0 point) Points 2 Interpretation Negative Tobacco use other than smoking: Question Answer Notes Are you an other tobacco user? No AUDIT-C (Standard) Question Answer Notes Did you have a drink contain ing alcohol in the past year? Yes How often did you have six o r more drinks on one occasion in the past year? Never (0 point) How many drinks did you have on a typical day when you were drinking in the past year? 1 or 2 drinks (0 point) How often did you have a dri nk containing alcohol in the past year? 2 to 4 times a month (2 points) Points 2 Interpretation Negative Tobacco Control (Standard) Question Answer Notes Tobacco use: Current some day smoker Additional Findings: Tobacco user Light cigarett e smoker (1-9 cigs/day) Problems Problem Type SNOMED Code ICD Code Onset Dates Problem Status W/U Status Risk Notes Problem Overactive bladder (171981422) Overactive bladder (N32.81) Active confirmed Problem Postmenopausal bleeding (94058555) Postmenopausal bleeding (N95.0) Active confirmed Problem Atrial flutter (6379328) Unspecified atrial flutter (I48.92) Active confirmed Problem Postcoital bleeding (13922127) Postcoital and contact bleeding (N93.0) Active confirmed Problem COVID-19 (207733272) COVID-19 (U07.1) Active confirmed Vital Signs Temperature 97.2 degrees Fahrenheit 09/02/2024 Blood pressure diastolic 74 mm Hg 09/02/2024 Height 65 in 09/02/2024 Blood pressure systolic 126 mm Hg 09/02/2024 Weight 166 lbs 09/02/2024 BMI 27.62 kg/m2 09/02/2024 Encounters Encounter Location Date Provider Diagnosis [address] [place] [address] 09/02/2024 BRANDON APODACA Encounter for gynecological examination (general) (routine) without abnormal findings Z01.419 ; Encounter for screening mammogram for malignant neoplasm of breast Z12.31 and Overactive bladder N32.81 Assessments Encounter Date Diagnosis (ICD Code) Assessment Notes Treatment Notes Treatment Clinical Notes Section Notes 09/02/2024 Encounter for gynecological examination (general) (routine) without abnormal findings (ICD-10 - Z01.419) During the visit, the following areas of concern were addressed: Discussed cervical cancer screening with either cytology alone every 3 years or high risk HPV co-testing every 5 years as per ASCCP guidelines. Advised continued annual pelvic exams. Patient encouraged to increase her level of exercise. SBE technique encouraged/tau ght. Patient reminded when annual mammogram is due. Patient encouraged to keep colon screening up to date. 09/02/2024 Encounter for screening mammogram for malignant neoplasm of breast (ICD-10 - Z12.31) 09/02/2024 Overactive bladder (ICD-10 - N32.81) Plan Of Treatment Pending Test Test Name Order Date Sonohysterogram 12/23/2018 Urinalysis 04/08/2020 Urinalysis 08/27/2020 MM Digital Screening Mammogram 3D 2020 MM Digital Screening Mammogram 3D 2022 MM Digital Screening Mammogram 3D 2023 MM Digital Screening Mammogram 3D 2024 MM Digital Screening Mammogram 3D 2018 MM Digital Screening Mammogram 3D 2019 [id number] IGP No Culture 30 Plus 2024 Next Appt Details Provider Name:BRANDON Perdue ELIA Bandar, 09/08/2025 11:00:00 AM, [address], [address], [place], [address], Medical (General) History Medical History History ICD Code Unspecified asthma, uncomplicated J45.90 9 Cardiac murmur, unspecified R01.1 Hyperlipidemia, unspecified E78.5 Anxiety disorder, unspecified F41.9 COVID-19 U07.1 Unspecified atrial flutter I48.92 Surgical History Surgery Date(Month/Year) Tubal ligation 1979 spinal surgery 2000 [facility] Hysteroscopy 01/2021 Hospitalization History Reason Date(Month/Year) see surgical hx
--- OUTSIDE RECORDS SUMMARY | 2025-01-08 10:28 | XMS_ITS | Encounter Summary ---
Author Organization [facility] Address [address] [place] [address] Care Team Providers Care Demand Planning Analyst Name Role Phone Ran Cuellar MD Primary Care Provider [phone] Encounter Details Date Type Department Care Team ([facility] st Contact Info) Description 02/05/2015 Scanned Document [address] [phone] Provider, Generic Social History Tobacco Use Types [...] Priority Date/Time Associated Diagnosis Comments ECG 12-LEAD 02/05/2015 ECG 12-LEAD 02/05/2015 documented in this encounter Results * ECG 12-LEAD (02/05/2015) Narrative 02/05/2015 Ordered by an unspecified provider. us Generic Provider ECG ORDERABLES Edited Result - Final * ECG 12-LEAD (02/05/2015) Narrative 02/05/2015 Ordered by an unspecified provider. us Generic Provider ECG ORDERABLES Edited Result - Final documented in this encounter Visit Diagnoses Not on filedocumented in this encounter Care Teams Demand Planning Analyst Relationship Specialty Start Date End Date Ran Cuellar MD [address] [place] [address] PCP - General Internal Medicine 11/18/14 07/30/18 documented as of this encounter
== END ==
LOC: HO.NUCMED 09:16
PROVIDERS: PCP Internal Medicine; Visit Provider Internal Medicine
DX: E05.90 Thyrotoxicosis, unspecified without thyrotoxic crisis or storm (principal)
CPT/HCPCS: 78014; A9512; A9516

== ENCOUNTER → 2025-01-08 09:30 | Outpatient (BNV) | payer OTHER, SELFPAY | PROVIDERS: PCP Internal Medicine; Visit Provider Radiology Diagnostic Radiology | DX: E05.90 Thyrotoxicosis, unspecified without thyrotoxic crisis or storm (principal) | CPT/HCPCS: 78014 ==